=== PATIENT | male | born 1965 | race Caucasian/White ===

== ENCOUNTER 2017-06-20 06:53 | Emergency (ER) | payer OTHER ==
[~2017-06-20] VITALS: Ht 188 cm; Wt 92.1 kg
[~2017-06-20 06:53] MED LIST: ASPIRIN EC81 M1 PO; BENADRYL25 MG PO; EPIPEN 2-P0.3 MG/0.3 IM; MEDROL4 M2 PO; METOPROLOL SUCC25 M1 PO; MULTIVITAMINS1 EAC9 PO; PRAVASTATIN SOD20 M2 PO; PREDNISOLO15 MG/5 M4 PO; VISTARIL50 M1 PO; VITAMIN C500 M4 PO; VITAMIN E100 UNI2 PO; XANAX0.5 M1 PO; XANAX1 M1 PO; ZOLOFT50 M1 PO
[2017-06-20 07:37] LABS: ABSOLUTE BASOPHIL COUNT 0.1 /CUMM (0.0-0.2); ABSOLUTE EOSINOPHIL COUNT 0.3 /CUMM (0.0-0.7); ABSOLUTE GRANULOCYTE CT 2.7 /CUMM (1.4-6.5); ABSOLUTE MONOCYTE COUNT 0.5 /CUMM (0.10-0.60); BASOPHIL % 0.8 % (0.0-2.0); EOSINOPHIL % 4.5 % (0-5); GRANULOCYTE % 41.6 % (42.2-75.2); HEMATOCRIT 41.7 % (42-52); MEAN CORPUSCULAR HGB 29.6 PG (27.0-31.0); MEAN CORPUSCULAR HGB CONC 33.8 G/DL (33.0-37.0); MEAN CORPUSCULAR VOLUME 87.7 FL (80.0-94.0); MEAN PLATELET VOLUME 9.7 FL (7.4-10.4); PLATELET COUNT 261 /CUMM (130-400); RED BLOOD CELL CT 4.76 /CUMM (4.70-6.10); WHITE BLOOD CELL COUNT 6.6 /CUMM (4.8-10.8)
--- NOTE | 2017-06-20 07:43 | ED CARDIAC/CP/PALPITATIONS ---
History of Present Illness General Chief Complaint: Chest Pain Stated Complaint: CHEST PAIN ON AND OFF Source: patient, old records Exam Limitations: no limitations Vital Signs & Intake/Output Vital Signs & Intake/Output Vital Signs Date Time Temp Pulse Resp B/P B/P Pulse O2 O2 Flow FiO2 Mean Ox Delivery Rate 06/20 917 97.8 54 20 126/76 99 Room Air 06/20 0808 98.0 55 18 114/70 96 Room Air 06/20 0705 99 Room Air 06/20 0700 97.0 62 18 129/97 99 Room Air Allergies Coded Allergies: colchicine (Severe, ANAPHYLAXIS 06/20/17) peanut (Severe, ANAPHYLAXIS 06/20/17) Penicillins (CHILDHOOD 06/20/17) Reconcile Medications Alprazolam (Xanax) 0.5 MG TABLET 1 TAB PO BID ANXIETY (Reported) Alprazolam (Xanax) 1 MG TABLET 0.5 TAB PO TIDPRN ANXIETY Ascorbic Acid (Vitamin C) (Unknown Strength) TAB.CHEW (Unknown Dose) PO DAILY SUPPLEMENT (Reported) Aspirin (Ecotrin*) 81 MG TABLET.DR 1 TAB PO DAILY HEART HEALTH (Reported) diphenhydrAMINE HCl (Benadryl) 25 MG CAP 1 CAP PO BID ALLERGIES (Reported) Epinephrine (Epipen 2-Edwin) 0.3 MG/0.3 ML AUTO.INJCT 1 INJ IM X1 PRN SEVERE ALLERGIC REACTION AND CALL 911 Hydroxyzine Pamoate (Vistaril) 50 MG CAPSULE 1 CAP PO TID PRN anxiety Hydroxyzine Pamoate (Vistaril) 50 MG CAPSULE 1 CAP PO BID PRN ANXIETY Multiple Vitamin (Multivitamins) 1 EACH TABLET 1 TAB PO DAILY SUPPLEMENT ( Reported) Pravastatin Sodium 20 MG TABLET 1 TAB PO DAILY CHOLESTEROL (Reported) Sertraline HCl (Zoloft) 50 MG TABLET 1 TAB PO DAILY MENTAL HEALTH (Reported) Vitamin E Mixed (Vitamin E) (Unknown Strength) TABLET (Unknown Dose) PO DAILY SUPPLEMENT (Reported) Core Measure Meds Pre-Hospital aspirin Triage Note: TRIAGE: PATIENT TO ER FROM HOME REPORTING SUDDEN ONSET, WOKE FROM SLEEP MIDDLE CP APPROX 4AM, INTERMITTENT SEVERITY. PATIENT REPORTS "BUT I ATE SUBWAY LAST NIGHT SO I MIGHT HAVE REFLUX FROM THAT." DENIES SOB/ ABD PAIN/ N/V/D. HX ABLASION, ANXIETY. Triage Nurses Notes Reviewed? yes Onset: Just prior to arrival Duration: hour(s):, constant, gone now Timing: recent history Quality/Severity: mild, moderate, burning Location: central Radiation: no radiation Activities at Onset: sleep Prior Chest Pain/Card Workup: cardiac cath, echocardiography, ablation Modifying Factors: Improves With: rest. Nitro Today/Relief: no nitro taken today Aspirin Today: 325 mg x 1, provided at home HPI: 3 hours prior to admission patient awoke with mild to moderate burning discomfort in the substernal area nonradiating lasting half an hour and recurred an hour later. He's had previous milder episodes with dietary indiscretion. He reports last night he had a [employer]. foot long tunafish with green peppers and mayonaisse. He denies fever chills nausea vomiting diarrhea cough shortness of breath headache dysuria rash bleeding. Past History Travel History Traveled to [place] past 21 day No Medical History Any Pertinent Medical History? 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 Yes Review of Systems Review of Systems Constitutional: Reports: no symptoms. EENTM: Reports: no symptoms. Respiratory: Reports: no symptoms. Cardiovascular: Reports: see HPI. GI: Reports: no symptoms. Genitourinary: Reports: no symptoms. Musculoskeletal: Reports: no symptoms. Skin: Reports: no symptoms. Neurological/Psychological: Reports: no symptoms. Hematologic/Endocrine: Reports: no symptoms. Immunologic/Allergic: Reports: no symptoms. All Other Systems: Reviewed and Negative Physical Exam Physical Exam General Appearance: well developed/nourished, alert, awake, anxious, comfortable Head: atraumatic, normal appearance Eyes: Bilateral: normal appearance, PERRL, EOMI. Ears, Nose, Throat: normal pharynx, normal ENT inspection, hearing grossly normal Neck: normal inspection, supple, full range of motion, no midline tenderness Respiratory: normal breath sounds, chest non-tender, no respiratory distress, quiet respiration, lungs clear Cardiovascular: regular rate/rhythm, normal peripheral pulses, bradycardia, norml femoral pulses equa Peripheral Pulses: 4+ carotid (R), 4+ carotid (L) Gastrointestinal: normal bowel sounds, soft, non-tender, no organomegaly Back: normal inspection, normal range of motion Extremities: normal inspection, normal capillary refill, normal range of motion, no edema Neurologic/Psych: no motor/sensory deficits, awake, alert, oriented x 3, normal gait, normal mood/affect, nutrition partner II-XII nml as tested Reflexes: 2+: bicep (R), bicep (L). Skin: intact, normal color, warm/dry Lymphatic: no anterior cervical yury Core Measures ACS in differential dx? Yes No ASA d/t Medical Contraindication CVA/TIA Diagnosis No Sepsis Present: No Sepsis Focused Exam Completed? No Progress Differential Diagnosis: atrial fibrillation, costochondritis, hypovolemia, pancreatitis, PUD/GERD Plan of Care: Orders Procedure Date/time Status TOTAL TRIODOTHYROXINE 06/20 07 Complete FREE T4 06/20 07 Complete TSH REFLEX 06/20 07 Complete TROPONIN LEVEL 06/20 07 Complete MAGNESIUM 06/20 07 Complete COMPREHENSIVE METABOLIC PANEL 06/20 07 Complete CBC WITHOUT DIFFERENTIAL 06/20 07 Complete EKG 06/20 0655 Active Laboratory Tests 06/20/17 0729: Anion Gap 11, Estimated GFR > 60, BUN/Creatinine Ratio 15.5, Glucose 82, Calcium 9.6, Magnesium 1.7, Total Bilirubin 0.5, AST 26, ALT 29, Alkaline Phosphatase 68 , Troponin I < 0.01, Total Protein 7.0, Albumin 4.1, Globulin 2.9, Albumin/ Globulin Ratio 1.4, Free T4 0.91, Total T3 1.25, TSH &T3 &Free T4 Intrp 6.720 H , CBC w Diff NO MAN DIFF REQ, RBC 4.76, MCV 87.7, MCH 29.6, MCHC 33.8, RDW 12.0, MPV 9.7, Gran % 41.6 L, Lymphocytes % 45.5, Monocytes % 7.6, Eosinophils % 4.5, Basophils % 0.8, Absolute Granulocytes 2.7, Absolute Lymphocytes 3.0, Absolute Monocytes 0.5, Absolute Eosinophils 0.3, Absolute Basophils 0.1 Initial ED EKG: normal axis, normal intervals, normal p-waves, normal QRS complex, rhythm (sinus bradycardia) Prior EKG: unchanged Rhythm Strip: sinus bradycardia Departure Departure Time of Disposition: 920 Disposition: HOME OR SELF CARE Condition: Stable Clinical Impression Primary Impression: Chest pain syndrome Secondary Impressions: Gastroesophageal reflux Referrals: Danielle REILLY,Danielle (PCP/Family) Ranjan REILLY,Gaurav Gee Call for GI follow up Departure Forms: Customer Survey General Discharge Information Critical Care Note Critical Care Note Critical Care Time: non-applicable
--- NOTE | 2017-06-20 08:05 | RADIOLOGY REPORT ---
EXAMINATION: XR CHEST CLINICAL INFORMATION: Chest pain COMPARISON: 03/29/2017 TECHNIQUE: 2 views of the chest were obtained. FINDINGS: Cardiac and mediastinal silhouette is within normal limits. Lungs are symmetric expanded. There are no pleural effusions, edema or pneumothorax. No focal consolidation. No acute osseous abnormality. IMPRESSION: No significant interval change. No evidence of acute process.
[2017-06-20 09:18] VITALS: BP 126/76
== END 2017-06-20 09:26 ==
LOC: ERH 06:53
PROVIDERS: Emergency Medicine
DX: R07.89 Other chest pain (principal); K21.9 Gastro-esophageal reflux disease without esophagitis
CPT/HCPCS: 71046; 93005; 93010; 96360

== ENCOUNTER 2017-12-12 17:37 | Emergency (ER) | payer OTHER ==
[~2017-12-12] VITALS: Ht 188 cm; Wt 99.8 kg
[2017-12-12 17:55] LABS: ABSOLUTE BASOPHIL COUNT 0 /CUMM (0.0-0.2); ABSOLUTE EOSINOPHIL COUNT 0.2 /CUMM (0.0-0.7); ABSOLUTE GRANULOCYTE CT 4.5 /CUMM (1.4-6.5); ABSOLUTE LYMPH COUNT 2.8 /CUMM (1.2-3.4); ABSOLUTE MONOCYTE COUNT 0.7 /CUMM (0.10-0.60); BASOPHIL % 0.5 % (0.0-2.0); EOSINOPHIL % 2.6 % (0-5); GRANULOCYTE % 54.6 % (42.2-75.2); HEMATOCRIT 42.3 % (42-52); MEAN CORPUSCULAR HGB 29.1 PG (27.0-31.0); MEAN CORPUSCULAR HGB CONC 33.8 G/DL (33.0-37.0); MEAN CORPUSCULAR VOLUME 86.1 FL (80.0-94.0); PLATELET COUNT 269 /CUMM (130-400); RBC DISTRIBUTION WIDTH 13.1 % (11.5-14.5); RED BLOOD CELL CT 4.92 /CUMM (4.70-6.10); WHITE BLOOD CELL COUNT 8.2 /CUMM (4.8-10.8)
--- NOTE | 2017-12-12 18:31 | RADIOLOGY REPORT ---
EXAMINATION: XR CHEST CLINICAL INFORMATION: Chest pain. COMPARISON: Chest x-ray from 06/20/2017. TECHNIQUE: 2 views of the chest were obtained. FINDINGS: No airspace opacities or pleural effusions are seen. The cardiomediastinal silhouette is normal. No acute osseous abnormality is seen. IMPRESSION: Clear lungs. No acute process.
--- NOTE | 2017-12-12 19:37 | ED GENERAL ADULT ---
See Addendum History of Present Illness General Chief Complaint: Chest Pain Stated Complaint: SOB, CHEST TIGHTNESS AND PAIN Source: patient Exam Limitations: no limitations Vital Signs & Intake/Output Vital Signs & Intake/Output Vital Signs Date Time Temp Pulse Resp B/P B/P Pulse O2 O2 Flow FiO2 Mean Ox Delivery Rate 12/12 1745 98.2 79 18 146/94 98 Room Air Allergies Coded Allergies: colchicine (Severe, ANAPHYLAXIS 06/20/17) peanut (Severe, ANAPHYLAXIS 06/20/17) Penicillins (CHILDHOOD 06/20/17) Reconcile Medications Alprazolam (Xanax) 0.5 MG TABLET 1 TAB PO BID ANXIETY (Reported) Alprazolam (Xanax) 1 MG TABLET 0.5 TAB PO TIDPRN ANXIETY Ascorbic Acid (Vitamin C) (Unknown Strength) TAB.CHEW (Unknown Dose) PO DAILY SUPPLEMENT (Reported) Aspirin (Ecotrin*) 81 MG TABLET.DR 1 TAB PO DAILY HEART HEALTH (Reported) diphenhydrAMINE HCl (Benadryl) 25 MG CAP 1 CAP PO BID ALLERGIES (Reported) Epinephrine (Epipen 2-Edwin) 0.3 MG/0.3 ML AUTO.INJCT 1 INJ IM X1 PRN SEVERE ALLERGIC REACTION AND CALL 911 Hydroxyzine Pamoate (Vistaril) 50 MG CAPSULE 1 CAP PO TID PRN anxiety Hydroxyzine Pamoate (Vistaril) 50 MG CAPSULE 1 CAP PO BID PRN ANXIETY Multiple Vitamin (Multivitamins) 1 EACH TABLET 1 TAB PO DAILY SUPPLEMENT ( Reported) Pravastatin Sodium 20 MG TABLET 1 TAB PO DAILY CHOLESTEROL (Reported) Sertraline HCl (Zoloft) 50 MG TABLET 1 TAB PO DAILY MENTAL HEALTH (Reported) Vitamin E Mixed (Vitamin E) (Unknown Strength) TABLET (Unknown Dose) PO DAILY SUPPLEMENT (Reported) Triage Note: 52 YO MALE TO TRIAGE FOR EVAL OF AT APPROX 1630 HE FELT LIKE "AN ELEPHANT WAS SITTING ON THE L SIDE OF MY CHEST" PT REPORTS +ACHE TO L SIDE OF CHETS AT THIS TIME, +SOB AT TIMES. DENIES ABD PAIN/NV. EKG COMPLETED ON ARRIVAL AND SHOWN TO MD. Triage Nurses Notes Reviewed? yes HPI: Patient is a 52-year-old male with past medical history of atrial fibrillation status post ablation 2 years ago at [facility], with no other cardiac history but whose father had an SC with full recovery at the age of 55, who presents today with chest pressure. He reports that the pressure began at approximately 4:30 this afternoon and lasted for 45 minutes. He describes as "an elephant sitting on the left side of my chest," but denies any associated dyspnea, nausea, radiation, or diaphoresis. He attempted no interventions, and the pain resolved spontaneously. He came to the ED for evaluation, and his arrival ECG was nonischemic. He is a nonsmoker, does not drink alcohol or do any illicit drugs, and works out extensively 6 days per week doing [employer]. He has never had any chest pressure even during prolonged and significant exertion. Presently, he states that the pain has completely resolved. Past History Travel History Traveled to [place] past 21 day No Medical History Any Pertinent Medical History? 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 Yes Review of Systems Review of Systems Constitutional: Reports: no symptoms. EENTM: Reports: no symptoms. Respiratory: Reports: no symptoms. Cardiovascular: Reports: see HPI, chest pain. Denies: edema, orthopena, palpitations, peripheral edema, syncope. GI: Reports: no symptoms. Genitourinary: Reports: no symptoms. Musculoskeletal: Reports: no symptoms. Skin: Reports: no symptoms. Neurological/Psychological: Reports: no symptoms. All Other Systems: Reviewed and Negative Physical Exam Physical Exam General Appearance: well developed/nourished, no apparent distress Comments: HEENT: Inspection of the head reveals a normocephalic cranium with no signs of trauma. Ophtho: Extraocular muscles are intact and pupils are equal and reactive to light bilaterally with no afferent pupillary defect. The sclera are noninjected , and there is no obvious discharge. Neck: The trachea is midline, there is no obvious asymmetry or mass over the thyroid, and there is no midline cervical spine tenderness Respiratory: The lungs are clear and equal to auscultation bilaterally without wheezes, rales, or rhonchi. The patient exhibits no signs of labored breathing. Cardiac: Regular rhythm and non-tachycardic without appreciable murmurs on auscultation. No obvious JVD. GI: Examination of the abdomen reveals no significant focal tenderness in any of the four quadrants. There is negative Fajardo's sign, negative McBurney's point tenderness, negative Kodi sign, negative Justin-Escobar sign, and no signs of peritonitis whatsoever on percussion or deep palpation. The skin is intact with no sign of trauma or infection. : Deferred Neuro: The patient is oriented to person, place, time, and situation, with no obvious focal motor deficits. There were no sensory deficits, and the patient exhibit purposeful movement of all 4 extremities. Cranial nerves II through XII are intact, and gait is normal. Behavioral: Calm and cooperative Dermatologic: Dermatologic examination reveals no diffuse rashes or exanthems, no petechiae, no ecchymoses, and no other signs of erythema or infection. Core Measures ACS in differential dx? Yes CVA/TIA Diagnosis: No Sepsis Present: No Sepsis Focused Exam Completed? No Progress Differential Diagnoses I considered the following diagnoses in my evaluation of the patient: STEMI, non -STEMI, acute coronary syndrome, Prinzmetal's angina, unstable angina, stable angina, aortic dissection, pneumothorax, pneumonia, pleuritis, pericarditis, myocarditis, among many other possibilities. Plan of Care: Orders Procedure Date/time Status EKG 12/12 1944 Active TROPONIN LEVEL 12/13 1743 Complete COMPREHENSIVE METABOLIC PANEL 12/13 1743 Complete CBC WITHOUT DIFFERENTIAL 12/13 1743 Complete EKG 12/13 1739 Active Laboratory Tests 12/12/17 1744: Anion Gap 9, Estimated GFR > 60, BUN/Creatinine Ratio 16.4, Glucose 85, Calcium 9.5, Total Bilirubin 0.7, AST 29, ALT 35, Alkaline Phosphatase 68, Troponin I < 0.01, Total Protein 7.5, Albumin 4.3, Globulin 3.2, Albumin/Globulin Ratio 1.3, CBC w Diff NO MAN DIFF REQ, RBC 4.92, MCV 86.1, MCH 29.1, MCHC 33.8, RDW 13.1, MPV 9.0, Gran % 54.6, Lymphocytes % 34.2, Monocytes % 8.1, Eosinophils % 2.6, Basophils % 0.5, Absolute Granulocytes 4.5, Absolute Lymphocytes 2.8, Absolute Monocytes 0.7 H, Absolute Eosinophils 0.2, Absolute Basophils 0 CXR Impression: no acute abnormality, no infiltrates Initial ED EKG: normal sinus rhythm rate of 73, normal axis, normal ST segments him a flattened T waves in V2 and V3 as well as III, normal NE, QRS, and QTc intervals, no STEMI. No priors currently available for comparison. Repeat EKG: unchanged Comments: Patient with no prior history of acute coronary syndrome and no risk factors other than prior atrial fibrillation and a family history, presented today with chest pressure. The pressure had resolved by the time of his ED arrival. The patient was placed on a continuous cardiopulmonary monitor immediately upon arrival and supplemental oxygen was delivered via nasal cannula. Screening ECG, laboratory studies, and images were obtained as previously documented. Aspirin was provided for the patient to chew, which they did without incident. Nitrate therapy was deferred given the resolution of pain prior to his arrival. At this point, the precise etiology of the patient's current symptom complex is unclear. While I am reassured by the fact that the patient's initial ECG is nondiagnostic and initial troponin is within normal limits, I cannot fully exclude a cardiac etiology here in the emergency department. The patient understands this completely, and has requested discharge home. He has a low HEART score, suggesting that his 30 day risk of a major acute cardiac event is between 2 and 3%. I described this to him and he was happy with this risk level. Repeat ECG prior to discharge was unremarkable, and the patient declined my offer for a repeat troponin and for hospitalization for cardiac observation. At this point, I doubt pulmonary embolus secondary to the lack of tachycardia, tachypnea, or hypoxia. Similarly, I doubt aortic dissection or abdominal aortic aneurysm secondary to the previously-mentioned factors along with the patient's nonfocal neurovascular examination in all four extremities. He was discharged home in stable condition and will follow up with both his PCP and disc ruler operator this week. Departure Departure Time of Disposition: 1956 Disposition: HOME OR SELF CARE Condition: Stable Clinical Impression Primary Impression: Chest pain Qualifiers: Chest pain type: unspecified Qualified Code: R07.9 - Chest pain, unspecified Referrals: Danielle Santos MD (PCP/Family) Additional Instructions: Please call your primary care physician and your disc ruler operator as discussed, and return to the emergency department in the meantime with any new or worsening symptoms. Departure Forms: Customer Survey General Discharge Information Critical Care Note Critical Care Note Critical Care Time: non-applicable
[2017-12-12 19:59] VITALS: BP 136/84
== END 2017-12-12 20:01 ==
LOC: ERH 17:37
PROVIDERS: Physician Assistant
DX: R07.89 Other chest pain (principal)
CPT/HCPCS: 71046; 93005; 93010